=== PATIENT | male | born 1945 | race Caucasian/White ===

== ENCOUNTER 2017-12-01 09:48 | Day surgery (SDC) | payer MEDICAID, MEDICARE ==
[~2017-12-01 09:48] MED LIST: CEFAZOLIN 2 GM/50 ML (PMX) 50 ML IVPB; SOD CHLORIDE 0.9% 1,000 ML IV
[2017-12-01] MEDS ORDERED: PROPOFOL 20 ML (12:12)
[2017-12-01] MEDS ORDERED: LIDOCAINE 2% (SDV) 5 ML INJ (12:12)
[2017-12-01] MEDS ORDERED: GLYCOPYRROLATE 0.4 MG INJ ×2 (12:12→12:45)
[2017-12-01] MEDS ORDERED: NEOSTIGMINE 3 MG/3 ML SYRINGE (12:12)
[2017-12-01] MEDS ORDERED: ROCURONIUM 50 MG INJ (12:12)
[2017-12-01] MEDS ORDERED: SUCCINYLCHOLINE CHLORIDE 100 MG/5 ML SYG IV (12:12)
[2017-12-01] MEDS ORDERED: ONDANSETRON 4 MG INJ (12:13)
[2017-12-01] MEDS ORDERED: MEPERIDINE /PF (100 MG/2 ML) AMPULE (12:13)
[2017-12-01] MEDS ORDERED: CEFAZOLIN 1 GM INJ (12:13)
[2017-12-01] MEDS ORDERED: EPHEDrine SULFATE 50 MG/5 ML SYG IV (12:30)
[2017-12-01] MEDS ORDERED: OXYCODONE/ACETAMINOPHEN (5/325) TAB PO (12:30)
[2017-12-01] MEDS ORDERED: DIPHENHYDRAMINE 50 MG INJ IV (12:30)
[2017-12-01] MEDS ORDERED: HYDROmorphONE 1 MG/5 ML IV SYRINGE IV ×3 (12:30)
[2017-12-01] MEDS ORDERED: METOCLOPRAMIDE 10 MG INJ IV (12:30)
[2017-12-01] MEDS ORDERED: FENTAnyl 50 MCG/ML VIAL IV ×2 (12:30)
[2017-12-01] MEDS ORDERED: hydrALAzine 20 MG INJ IV (12:30)
[2017-12-01] MEDS ORDERED: MEPERIDINE 25 MG INJ IV (12:30)
[2017-12-01] MEDS ORDERED: MIDAZOLAM 1 MG/ML 2 ML INJ IV (12:30)
[2017-12-01] MEDS ORDERED: ONDANSETRON 4 MG INJ IV (12:30)
[2017-12-01] MEDS ORDERED: LABETALOL HCL 20MG INJ IV (12:30)
[2017-12-01] MEDS: BUPIVACAINE 0.25% (MPF) 30 ML INJ (12:58)
[2017-12-01] MEDS: POLYMYXIN/BACITRACIN 1L IRRIG IRR (12:58)
[2017-12-01] MEDS ORDERED: HYDROCODONE/APAP (5/325) TAB PO (13:30)
[2017-12-01] MEDS ORDERED: POLYMYXIN/BACITRACIN 1L IRRIG (13:32)
[2017-12-01] MEDS: FENTAnyl 50 MCG/ML VIAL IV (13:51)
[2017-12-01] MEDS: OXYCODONE/ACETAMINOPHEN (5/325) TAB PO (15:03)
== END 2017-12-01 15:12 | disposition home or self-care (01) ==
LOC: SDS 09:48
DX: K40.30 Unilateral inguinal hernia, with obstruction, without gangrene, not specified as recurrent (principal)
CPT/HCPCS: 49507